=== PATIENT | female | born 1990 | race Caucasian/White ===

== ENCOUNTER 2019-07-18 08:47 | Outpatient (CLI) | payer OTHER ==
--- NOTE | 2019-07-18 09:30 | ULT ---
EXAM: OB ultrasound COMPARISON: None HISTORY: female. Evaluate size, dates, and anatomy. TECHNIQUE: Multiplanar grayscale and color Doppler images were obtained in a transabdominal ult rasound. FINDINGS: There is a single live intrauterine with heart rate of 155 bpm. A survey wa s performed which is unremarkable. The head, intracranial structures, heart, stomach, kidneys, umbilical cord, umbilical cord insertion, spine, face, and extremities were evaluated and were unrema rkable. Estimated weight is 305 g. Average age of the fetus based off today's examination is 19 weeks 5 days. BPD 4.51 cm -- 19 weeks 5 days HC 17.09 cm -- 19 weeks 5 days AC 14.99 cm -- 20 weeks 2 days FL 2.92 cm -- 19 weeks 0 days The placenta is anterior in location without focal abnormality. BETTYE is 8.28 cm which is normal. The cervix is normal in length. There is no evidence of placenta previa. IMPRESSION: Single live intrauterine with estimated age of 19 weeks 5 days.
== END 2019-07-18 08:48 | disposition home or self-care (01) ==
LOC: BICULT 08:47
PROVIDERS: ATTEND Family Medicine
DX: Z34.82 Encounter for supervision of other normal pregnancy, second trimester (principal); Z3A.19 19 weeks gestation of pregnancy
CPT/HCPCS: 76805

== ENCOUNTER 2019-11-28 05:36 | Inpatient (IN) | payer OTHER ==
[2019-11-28] MEDS ORDERED: Ondansetron PF 4 MG/2 ML Vial IVP PRN ×3 (05:50→09:41)
[2019-11-28] MEDS ORDERED: CEFAZOLIN 2 GM in Premix Bag 1 BAG IVPB SCH (05:50)
[2019-11-28] MEDS ORDERED: Lactated Ringer's 1,000 ML IV SCH (05:50)
[2019-11-28] MEDS ORDERED: hydrALAZINE 20 MG/ML VIAL SLOW IVP PRN ×2 (05:50→09:41)
[2019-11-28] MEDS ORDERED: Promethazine HCl 25 MG/ML VIAL IM PRN ×2 (05:50→07:55)
[2019-11-28] MEDS ORDERED: Bicitra 30 ML UDCUP PO SCH (05:50)
[2019-11-28 06:03] VITALS: BMI 26.5
[2019-11-28 06:10] LABS: Hemoglobin 12.5 g/dL (12.0-16.0); Mean Corpuscular HGB CONC 32.6 g/dL (32.0-36.0); Mean Corpuscular Hemoglobin 29.5 pg (27.0-31.0); Mean Corpuscular Volume 90.6 fL (78.0-98.0); Mean Platelet Volume 9.6 fL (7.4-10.4); Platelet Count 161 thou/uL (130-400); RBC Distribution Width 12.9 % (11.5-14.5); Red Blood Cell (RBC) Count 4.24 mill/uL (4.20-5.40); White Blood Cell (WBC) Count 7.3 thou/uL (4.8-10.8)
[2019-11-28] MEDS ORDERED: Famotidine/PF 20 mg/2ml Vial ONE (06:38)
[2019-11-28 06:47] LABS: Syphilis Antibody Nonreactive (Nonreactive); Syphilis Antibody Index 0.07 S/CO (<1.00 Non-Reactive)
[2019-11-28 06:48] LABS: HBSAg Index 0.23 S/CO (0-0.99); Hep B Surf Ag Non-Reactive S/CO (NonReactive)
[2019-11-28] MEDS ORDERED: Oxytocin 10 UNITS/ML VIAL ONE ×2 (06:52→08:01)
[2019-11-28] MEDS ORDERED: MORPHINE 5 MG/10 ML PF VIAL ONE (06:52)
[2019-11-28] MEDS ORDERED: Meperidine HCl/PF 25 MG/ML VIAL SLOW IVP PRN (07:55)
[2019-11-28] MEDS ORDERED: diphenhydrAMINE 50 MG/ML VIAL IVP PRN (07:55)
[2019-11-28] MEDS ORDERED: Naloxone HCl 0.4 mg/ml Vial IV PRN (07:55)
[2019-11-28] MEDS ORDERED: Ondansetron HCl/PF 4 MG/2 ML Vial IVP PRN (07:55)
[2019-11-28] MEDS ORDERED: Promethazine HCl 25 MG SUPP PR PRN (07:55)
[2019-11-28] MEDS ORDERED: L&D-Morphine 4 MG/ML VIAL SLOW IVP PRN (07:55)
[2019-11-28] MEDS ORDERED: Naloxone HCl 0.4 mg/ml Vial IVP PRN ×2 (07:55)
[2019-11-28] MEDS ORDERED: HYDROmorphone 2 MG/ML VIAL SLOW IVP PRN (07:55)
[2019-11-28] MEDS ORDERED: Communication Order-Pharmacy FS SCH (08:00)
[2019-11-28] MEDS ORDERED: Acetaminophen 325 MG TAB PO PRN (09:41)
[2019-11-28] MEDS ORDERED: diphenhydrAMINE 25 MG CAP PO PRN (09:41)
[2019-11-28] MEDS ORDERED: Lanolin Ointment 7 GM TUBE TOP PRN (09:41)
[2019-11-28] MEDS ORDERED: Bisacodyl 10 MG SUPP PR PRN (09:41)
[2019-11-28] MEDS ORDERED: Meperidine HCl/PF 25 MG/ML VIAL ONE (10:36)
[2019-11-28] MEDS: Docusate Calcium (SURFAK) 240 MG CAP PO SCH ×2 (11:45→20:55)
[2019-11-28] MEDS: Ferrous Sulfate 325 MG TAB PO SCH ×2 (11:46→20:50)
[2019-11-28] MEDS: Enoxaparin Sodium 40 MG/0.4 ML SYRINGE SC SCH (11:46)
[2019-11-28] MEDS: Prenatal Vitamin 1 TAB PO SCH (11:46)
[2019-11-28] MEDS ORDERED: Ketorolac Tromethamine 30 MG/ML VIAL ONE (11:55)
--- NOTE | 2019-11-28 13:01 | OP ---
DATE OF PROCEDURE: 11/28/2019 PREOPERATIVE DIAGNOSIS: Term intrauterine with coagulopathy and previous section x2. POSTOPERATIVE DIAGNOSES: Term intrauterine with coagulopathy and previous section x2. Status post delivery. PROCEDURE: Repeat low-transverse section. [employer]ER: Dr. Talya Griffith. ANESTHESIA: Spinal anesthetic. COMPLICATIONS: No complications. DESCRIPTION OF PROCEDURE: After adequate spinal anesthetic, patient was placed in supine position. A Rogers catheter was placed in her bladder and the abdomen was prepped and draped in the usual sterile technique. A Pfannenstiel incision was made over the old scar. Subcutaneous tissue opened with sharp dissection. Fascia was opened with sharp dissection. Peritoneum opened with sharp and blunt dissection. Noted the abdomen was filled with a gravid uterus. An Dean O retractor was placed without difficulty and a low-transverse incision was made on the uterus. Membranes were ruptured. Clear fluid was encountered and a viable male was delivered from vertex presentation. Infant breathed and cried spontaneously. Nose and mouth were bulb suctioned. Cord was clamped after approximately 30 seconds and cut, and infant handed to the care of the Neonatology team. Cord blood was obtained. Placenta was delivered with gentle traction, appeared intact. The uterus was wiped with a wet lap and the hysterotomy edges were grasped with ring forceps. Hysterotomy was then closed in continuous fashion using 0 Monocryl with an additional [id number] on the left lateral edge for good hemostasis. There were no further bleeders. Gutters were checked. There were no clots. The Dean O retractor was removed and the peritoneum was then closed in continuous fashion using 2-0 chromic. The fascia was then closed in continuous fashion using 0 Vicryl and a running suture of 2-0 plain was used to approximate the subcutaneous tissue. The skin was then closed using 4-0 Monocryl. Hemostasis was adequate. Sponge and instrument counts were correct x2. The patient tolerated the procedure well, did go to recovery room in good condition with quantitative blood loss at 375. Noted the baby is a viable male , weight 6 pounds 11 ounces. Apgars 9 at 1 minute, 9 at 5 minutes, in level one nursery. Job ID: [id number]
[2019-11-28] MEDS: Ketorolac Tromethamine 30 MG/ML VIAL IVP PRN ×2 (14:08→20:55)
[2019-11-28] MEDS: Simethicone Chewable 80 MG TAB PO PRN (20:55)
[2019-11-29] MEDS: HYDROcodone/Acetaminophen 5/325 mg Tablet PO PRN ×3 (05:11→20:15)
[2019-11-29 06:02] LABS: Hemoglobin 10.2 g/dL (12.0-16.0); Mean Corpuscular HGB CONC 31.6 g/dL (32.0-36.0); Mean Corpuscular Hemoglobin 29.1 pg (27.0-31.0); Mean Corpuscular Volume 92.1 fL (78.0-98.0); Mean Platelet Volume 9.1 fL (7.4-10.4); Platelet Count 105 thou/uL (130-400); RBC Distribution Width 12.8 % (11.5-14.5); Red Blood Cell (RBC) Count 3.49 mill/uL (4.20-5.40); White Blood Cell (WBC) Count 9.2 thou/uL (4.8-10.8)
[2019-11-29] MEDS: Docusate Calcium (SURFAK) 240 MG CAP PO SCH ×2 (07:40→20:15)
[2019-11-29] MEDS: Enoxaparin Sodium 40 MG/0.4 ML SYRINGE SC SCH (07:40)
[2019-11-29] MEDS: Prenatal Vitamin 1 TAB PO SCH (07:40)
[2019-11-29] MEDS: Ferrous Sulfate 325 MG TAB PO SCH ×2 (07:43→20:14)
[2019-11-29] MEDS: Acetaminophen/Codeine 30-300mg Tablet PO PRN ×2 (07:58→11:52)
[2019-11-30] MEDS: HYDROcodone/Acetaminophen 5/325 mg Tablet PO PRN ×2 (01:12→08:34)
[2019-11-30] MEDS: Simethicone Chewable 80 MG TAB PO PRN (03:57)
[2019-11-30 08:07] VITALS: BP 123/60; TEMP 98.3
[2019-11-30] MEDS: Docusate Calcium (SURFAK) 240 MG CAP PO SCH (08:34)
[2019-11-30] MEDS: Prenatal Vitamin 1 TAB PO SCH (08:34)
[2019-11-30] MEDS: Enoxaparin Sodium 40 MG/0.4 ML SYRINGE SC SCH (08:36)
[2019-11-30] MEDS: Ferrous Sulfate 325 MG TAB PO SCH (08:39)
== END 2019-11-30 12:15 | disposition home or self-care (01) | DRG 787 ==
LOC: L&D 05:36 → 3SE 11:04 → 3SW 19:17
PROVIDERS: ADMIT Family Medicine; ATTEND Family Medicine
PROC: 10D00Z1 Extraction of Products of Conception, Low, Open Approach (ICD-10-PCS; principal; 2019-11-28)
DX: O34.211 Maternal care for low transverse scar from previous cesarean delivery (principal); O99.12 Other diseases of the blood and blood-forming organs and certain disorders involving the immune mechanism complicating childbirth; D68.9 Coagulation defect, unspecified; O24.420 Gestational diabetes mellitus in childbirth, diet controlled; Z37.0 Single live birth; Z3A.38 38 weeks gestation of pregnancy
CPT/HCPCS: 36415; 51702; 85027; 86780; 86850; 86870; 86900; 86901; 87340; J0690; J1650; J1885; J2175; J2274; J2590; S0028